=== PATIENT | male | born 1995 | race Caucasian/White ===

== ENCOUNTER 2016-08-07 20:26 | Emergency (ER) | payer OTHER ==
[~2016-08-07] VITALS: Ht 188 cm; Wt 86.2 kg
[2016-08-07 20:28] VITALS: BP 154/65
== END 2016-08-08 01:04 | disposition left against medical advice (07) ==
LOC: M ED 23:57
DX: K08.89 Other specified disorders of teeth and supporting structures (principal)

== ENCOUNTER → 2018-07-28 | Outpatient (CLI) | payer SELFPAY ==
[2018-07-28 10:02] LABS: BASO % 0.2 % (0.0-1.0); EOS # 0.1 10^3/uL (0.0-0.50); EOS % 0.9 % (0.0-3.0); HEMOGLOBIN 16.2 g/dl (13.5-17.5); LYMPH # 3.2 10^3/uL (1.5-6.5); LYMPH % 39.3 % (24.0-44.0); MEAN CORPUSCULAR HEMOGLOBIN 31.6 pg (27.0-33.0); MEAN CORPUSCULAR HGB CONC 35.2 g/dl (32.0-36.5); MEAN CORPUSCULAR VOLUME 89.7 fl (80.0-96.0); MONO # 0.7 10^3/uL (0.0-0.8); MONO % 8.1 % (0.0-5.0); NEUTROPHILS # 4.1 10^3/uL (1.8-7.7); NEUTROPHILS % 51.1 % (36.0-66.0); PLATELET COUNT, AUTOMATED 293 10^3/uL (150-450); RED BLOOD COUNT 5.13 10^6/uL (4.30-6.10); WHITE BLOOD COUNT 8.1 10^3/uL (4.0-10.0)
[2018-07-28 10:37] LABS: ALBUMIN 4.3 GM/DL (3.2-5.2); ALT/SGPT 34 U/L (12-78); BILIRUBIN,TOTAL 0.5 MG/DL (0.2-1.0); BLOOD UREA NITROGEN 12 MG/DL (7-18); CALCIUM LEVEL 9.2 MG/DL (8.5-10.1); CARBON DIOXIDE LEVEL 30 MEQ/L (21-32); CHLORIDE LEVEL 104 MEQ/L (98-107); CREATININE FOR GFR 0.67 MG/DL (0.70-1.30); GLOMERULAR FILTRATION RATE > 60.0 (>60); GLUCOSE, FASTING 101 MG/DL (70-100); POTASSIUM SERUM 4.4 MEQ/L (3.5-5.1); SODIUM LEVEL 142 MEQ/L (136-145); THYROID STIMULATING HORMONE 0.505 uIU/ML (0.358-3.740); TOTAL PROTEIN 7.5 GM/DL (6.4-8.2)
== END ==
LOC: M LAB 08:48
PROVIDERS: ATTEND Physician Assistant
DX: L65.9 Nonscarring hair loss, unspecified (principal)

== ENCOUNTER → 2019-01-25 | Outpatient (CLI) | payer SELFPAY ==
--- NOTE | 2019-01-25 11:07 | REP ---
SCROTAL ULTRASOUND: Real-time sonographic evaluation of the scrotum and contents performed. Testicles are normal in size and echotexture with no mass or torsion. Right testicle measures 5.1 x 2.4 x 3.2 cm and left testicle 4.7 x 2.3 x 3.2 cm. The resistive index right testicle is 0.60 and left testicle 0.71. Cysts are seen in the head of each epididymis, largest on the right is 1 cm and left 8 mm. Two tiny calcifications are seen in the mid left testicle. Mildly prominent venous structure is adjacent to the left testicle slightly increased in diameter with Valsalva maneuver and demonstrate reflux likely representing a small varicocele. IMPRESSION: No testicular mass or torsion. Cyst in the head of each epididymis as discussed above. Small left varicocele. Electronically Signed by Michael James MD 01/27/2019 10:43 P
== END ==
LOC: M RAD 09:27
PROVIDERS: ATTEND Physician Assistant Medical
DX: N50.819 Testicular pain, unspecified (principal); N50.3 Cyst of epididymis